=== PATIENT | female | born 1970 | race Caucasian/White ===

== ENCOUNTER → 2019-08-06 | Day surgery (SDC) | payer OTHER ==
[~2019-08-06] MED LIST: ESTRACE0.5 MG PO; LEVOXYL75 MCG PO; NORCO 5-325 TA1 EAC1 PO; PROZAC20 M1 PO; SAXENDA3 MG/0.5 M SUBQ; SPIRONOLACTONE25 MG PO
--- NOTE | ~2019-08-06 | OP ---
[address] [address] OPERATIVE REPORT Name: LAMBERT HINDS Room: [facility]#: [id number] Admission: 08/06/19 Attend Phys: Jae Paez II Discharge: Date of : 66 Report #: [id number] THIS REPORT FOR: //name// CC: Gloria Paez DATE OF SERVICE: 08/06/2019 PREOPERATIVE DIAGNOSIS: Right carpal tunnel syndrome. POSTOPERATIVE DIAGNOSIS: Right carpal tunnel release. SURGEON: Jae Paez II, D.O. CHIP BIN OPERATOR: CINDY Plasencia. ANESTHESIA: Per operative record. ESTIMATED BLOOD LOSS: Minimal. ANTIBIOTICS: Per operative record. DRAINS: None. COMPLICATIONS: None. CONDITION OF THE PATIENT: Stable to recovery room. DESCRIPTION OF PROCEDURE: The patient was taken to the operative suite and placed supine on the operating table, given appropriate anesthesia. The patient's right arm was sterilely prepped and draped with well-padded tourniquet applied to the upper arm, which was inflated to 250 mmHg after Esmarch exsanguination for duration of procedure. The right arm was sterilely prepped and draped. Surgery began by midline incision of the right palm, carried down to the subcutaneous tissues. The transverse carpal ligament was then found and ligated in both proximal and distal directions and shown to be completely transected. The median nerve was intact; however, it did have hourglass deformity due to significant compression. Irrigation was then performed of the wound. It was then closed with 4-0 nylon in simple interrupted fashion. Dermabond and sterile dressing applied. The patient transported to recovery room in stable condition. Counts were correct throughout the procedure. By: [id number] Paez II, DO /nt
[2019-08-06 13:28] LABS: CALCIUM 9.5 mg/dL (8.5-10.1); CREATININE 0.9 mg/dL (0.6-1.3); POTASSIUM 3.5 mmol/L (3.5-5.1)
--- NOTE | 2019-08-06 13:33 | EKG ---
[place] [address] ELECTROCARDIOGRAM REPORT Name: LAMBERT HINDS Room: [facility]#: [id number] Admission: 08/06/19 Attend Phys: Jae Paez II Discharge: Date of : 66 Report #: [id number] THIS REPORT FOR: //name// [facility] Test Date: 2019-08-06 Test Time: 13:17:11 Pat Name: LAMBERT HINDS Department: Room: Gender: F Technician Anatomic Pathology: : 1970 Requested By: Jea Paez Order Number: [id number] Cindy YUSUF: Alan Fierro Measurements Intervals [place] Rate: 64 P: 18 AR: 155 QRS: -29 QRSD: 98 T: 4 QT: 428 QTc: 442 Interpretive Statements Sinus rhythm Left ventricular hypertrophy Anterior Q waves, possibly due to LVH No previous ECG available for comparison Electronically Signed On 08-06-2019 13:33:31 [employer] by Alan Fierro [email or web address] <ELECTRONICALLY SIGNED> By: Alan Fierro MD, [facility] 08/06/19 1333 1317 1317 Alan Fierro MD, FACC /EPI
== END | disposition home or self-care (01) ==
LOC: M.SUR 07:00
PROVIDERS: Orthopaedic Surgery
DX: G56.01 Carpal tunnel syndrome, right upper limb (principal); Z98.890 Other specified postprocedural states; Z79.899 Other long term (current) drug therapy; Z88.2 Allergy status to sulfonamides; Z88.8 Allergy status to other drugs, medicaments and biological substances